=== PATIENT | female | born 1985 | race African-American/Black ===

== ENCOUNTER 2018-09-01 10:32 | Emergency (ER) | payer OTHER ==
[~2018-09-01] VITALS: Ht 170.2 cm; Wt 78.9 kg
[~2018-09-01 10:32] MED LIST: FLEXERIL PO; IBUPROFEN 800800 M1 PO; NAPROSYN500 MG PO; NORCO 5-325 TA1 EAC1 PO; NORFLEX100 MG PO
[2018-09-01] MEDS ORDERED: PENICILLIN V P500 MG PO (11:10)
[2018-09-01] MEDS ORDERED: TRAMADOL 50 MG50 MG PO (11:10)
[2018-09-01 11:35] VITALS: BP 132/82
== END 2018-09-01 11:36 | disposition home or self-care (01) ==
LOC: ER 10:32
DX: K04.7 Periapical abscess without sinus (principal); K02.9 Dental caries, unspecified; Z91.048 Other nonmedicinal substance allergy status